=== PATIENT | male | born 1995 | race Two or more races ===

== ENCOUNTER 2019-02-01 15:55 | Emergency (ER) | payer SELFPAY ==
[~2019-02-01] VITALS: Ht 172.7 cm; Wt 84.0 kg
[2019-02-01 16:10] VITALS: BP 117/41
[2019-02-01] MEDS ORDERED: DEXAMETHASONE 4 MG/ML, 5ML ONE (16:18)
[2019-02-01] MEDS ORDERED: DEXAMETHASONE 4 MG TABLET PO ONE (16:30)
== END 2019-02-01 17:22 | disposition home or self-care (01) ==
LOC: ED 17:05
DX: J02.9 Acute pharyngitis, unspecified (principal); H10.33 Unspecified acute conjunctivitis, bilateral
CPT/HCPCS: 87081; 87880; 99283